=== PATIENT | female | born 1995 | race Two or more races ===

== ENCOUNTER 2022-07-27 19:04 | Observation (INO) | payer MEDICAID ==
[~2022-07-27] VITALS: Ht 162.6 cm; Wt 93.4 kg
[2022-07-27] MEDS ORDERED: PREN-96 PO (20:49)
== END 2022-07-27 21:05 | disposition home or self-care (01) ==
LOC: LDRP 19:04
PROVIDERS: ADMIT Obstetrics & Gynecology; ATTEND Obstetrics & Gynecology
DX: O62.9 Abnormality of forces of labor, unspecified (principal); Z3A.24 24 weeks gestation of pregnancy
CPT/HCPCS: 59025; 81002; 94760; G0378